=== PATIENT | female | born 1940 | race Caucasian/White ===

== ENCOUNTER 2016-11-24 20:50 | Inpatient (IN) | payer MEDICARE ==
[~2016-11-24] VITALS: Ht 154.9 cm; Wt 42.9 kg
[2016-11-24] MEDS ORDERED: BISCOLAX10 MG/SUPP RC (21:23)
[2016-11-24] MEDS ORDERED: MORPHINE SULFAT15 M4 PO (21:24)
[2016-11-24] MEDS ORDERED: ACIDOPHILUS LAC1 CAP PO (21:25)
[2016-11-24] MEDS ORDERED: ASCORBIC ACID500 MG PO (21:25)
[2016-11-24] MEDS ORDERED: MULTIPLE VITAMI1 TA1 PO (21:26)
[2016-11-24] MEDS ORDERED: ARGININE1 GM PO (21:26)
[2016-11-24] MEDS ORDERED: SENNA PLUS TA1 UDTAB PO (21:27)
[2016-11-24] MEDS ORDERED: ATIVAN0.5 MG PO (21:28)
[2016-11-24] MEDS ORDERED: SEROQUEL50 MG PO (21:28)
[2016-11-24] MEDS ORDERED: MORPHINE SUL20 MG/ML PO (21:38)
[2016-11-24] MEDS ORDERED: LORAZEPAM1 MG/0.5 M SL (21:40)
[2016-11-25 03:56] VITALS: BP 119/71; BMI 18.6
[2016-11-25 06:39] LABS: APPEARANCE TURBID (CLEAR); BILIRUBIN NEGATIVE (NEGATIVE); COLOR YELLOW (YELLOW); GLUCOSE NEGATIVE (NEGATIVE); KETONE NEGATIVE (NEGATIVE); LEUKOCYTE ESTERASE 2+ (NEGATIVE); NITRITE POSITIVE (NEGATIVE); PROTEIN TRACE mg/dL (NEGATIVE); SPECIFIC GRAVITY 1.005 (1.005-1.020); UROBILINOGEN NORMAL (NORMAL)
[2016-11-25 06:40] LABS: BACTERIA MANY /hpf (NONE SEEN); EPITHELIAL CELLS 0-5 /hpf (0-5); RED CELLS - URINE 25-50 /hpf (0-5); WHITE CELLS - URINE >50 /hpf (0-5)
[2016-11-25 07:39] LABS: BASOPHILS 0.5 % (0.0-2.0); EOSINOPHILS 0.7 % (0-7); HEMATOCRIT 34.1 % (36.0-48.0); HEMOGLOBIN 10.9 g/dL (12-16); IMMATURE GRANULOCYTES 0.7 % (0-5); LYMPHOCYTES 19.6 % (15-50); MCH 30.4 pg (26.0-34.0); MONOCYTES 8.8 % (2-11); NEUTROPHILS 69.7 % (40-80); RBC 3.59 10x6/uL (4.00-5.40); RDW 17.3 % (11.5-14.5); WBC 7.4 10x3/uL (4.8-10.8)
[2016-11-25 07:43] LABS: PLATELET COUNT 406 10x3/uL (130-400)
[2016-11-25 07:51] LABS: ALBUMIN 2.8 g/dL (3.4-5.0); ALKALINE PHOSPHATASE 86 U/L (46-116); ALT (SGPT) 22 U/L (10-68); CALC OSMOLALITY 272 mosm/kg (275-300); CALCIUM 8.6 mg/dL (8.5-10.1); CARBON DIOXIDE 27.7 mmol/L (21.0-32.0); CHLORIDE - SERUM 100 mmol/L (98-107); CHOL - HDL RATIO 2.3 ratio (2.3-4.1); CHOLESTEROL, TOTAL 172 mg/dL (0-200); CREATININE - SERUM 0.5 mg/dL (0.6-1.3); GLUCOSE 99 mg/dL (74-106); HDL CHOLESTEROL 75 mg/dL (32-96); LDL CHOLESTEROL 84 mg/dL (0-100); LDL-HDL RATIO 1.1 ratio (1.5-3.5); POTASSIUM - SERUM 3.8 mmol/L (3.5-5.1); PROTEIN - SERUM 6.7 g/dL (6.4-8.2); SODIUM 137 mmol/L (136-145); THYROID STIMULATING HORMONE 5.34 uIU/mL (0.36-3.74); TRIGLYCERIDE 66 mg/dL (30-200); UREA NITROGEN 9 mg/dL (7-18); eGFR NON AFRICAN AMERICAN > 90 mL/min (90-120)
[2016-11-25 08:08] VITALS: BP 131/72
[2016-11-25 09:57] VITALS: Ht 154.9 cm; Wt 42.9 kg
--- NOTE | 2016-11-25 15:45 | NUR ---
(B)RECEIVED PATIENT SITTING IN A CHAIR AT THE NURSES STATION. ORIENTED TO SELF ONLY. CALLING OUT FOR HELP. CRIES OUT BUT NO TEARS AND WHEN APPROACHED SHE STOPS. MOTIONS FOR SOMEONE TO COME TO HER AT ALL TIMES. TRIES TO GET PEERS TO WAIT ON HER. ROGER BAUTISTA SHE IS HERE BECAUSE THEY ARE JEALOUS OF HER BECAUSE SHE HAS TRAVELED THE WORLD OVER AND WAS TO A DOCTOR. SOMATIC C/O. (I)ADMINISTER MEDS AND MONITOR COMPLIANCE. REORIENT NEEDED. (R)MED COMPLIANT. POOR REORIENTATION DUE TO IMPAIRED ABILITY TO RETAIN INFORMATION. CONTINUES TO BE ATTENTION SEEKING AND DEMANDING. (P)CONTINUE POC AND MAINTAIN FALL PRECAUTIONS.
[2016-11-25 20:00] VITALS: BP 119/68
--- NOTE | 2016-11-26 | NUR ---
B) Recieved patient in the day room sitting in a gerardo chair, alert and oriented to self and hospital, attention seeking and intrusive, I) Administered perscribed medications, redirected andoriented as needed, R) Medication compliant, yells for staff to come to her, always needing somthing, P) Continue plan of care.
--- NOTE | 2016-11-26 07:45 | NUR ---
Patient started the day making requests for different things even though she was just told it will be just one moment. Patient is not able to roll herself and she will not stand, she is a total care patient. Patient does have a jordan cath and it is draining cloudy yellow urine. Patient is oriented to her name this am, but she is delusional and did say "I have two cups of goat milk that I must have" Explianed to her that it is not here, she is in the hospital, perhaps it is at the [facility] Patient said "Right, I need it now" Patient is hard of hearing and she is not comprehending that the goat milk is not here. Patient can be a bit eccentric and grandiose, but she is being less intrusive at this time. I) Provide prescribed meds and attempt to redirect. R) Patient is compliant with meds, but she does ask about all of her meds. P) Continue plan of care.
[2016-11-26 08:16] LABS: FOLATE (FOLIC ACID) - SERUM >20.0 ng/mL (>3.0)
[2016-11-26 10:39] VITALS: BP 99/59
--- NOTE | 2016-11-26 12:40 | NUR ---
CONSTANTLY SHIFTING IN RECLINER,WANTS TO LAY DOWN.EXPLAINED TO HER SHE CAN'T LAY DOWN NOW BUT WANT ACCEPT NO AN ANSWER.ATIVAN 0.5MG SL GIVEN FOR ANXIETY.
--- NOTE | 2016-11-26 12:40 | NUR ---
Patient is getting anxious and rambling and doesn't want to listen to redirection. She will say "What I can't hear" Unsure if this is r/t her hearing or her attention seeking behavior. She is demanding and wants to be attended to at the exact moment she asks for it. Ativan 0.5 mg po given SL now, will monitor.
--- NOTE | 2016-11-26 13:10 | NUR ---
RESTING QUIETLY IN RECLINER.GOOD RESPONSE TO ATIVAN.
--- NOTE | 2016-11-26 13:20 | NUR ---
Patient is calmer and less demanding, trying to rest.
--- NOTE | 2016-11-26 14:54 | NUR ---
Patient yelling out "May I please get a pill to sleep" She asked several times and staff redirected her several times that it is day time and we can not have sleeping pills.
--- NOTE | 2016-11-26 14:55 | NUR ---
Patient then began asking for a pain pill, saying "It is has been 3 hours since I've had anything" Then patient began her fake crying and hollering out. She covered her face with a sheet. When no one responded to her fake cry she stopped and then she asked Mirian if she can have medication. Mirian said I will let Iris know. Patient is perfectly calm now.
--- NOTE | 2016-11-26 15:15 | NUR ---
Patient requests pain medication. Morphine 10 mg SL provided now.
--- NOTE | 2016-11-26 15:53 | NUR ---
Visitors present and patient is trying to whine and cry, but no tears are seen, Veronica Blanco asked her "What do you need" She mentioned "High tea" and then she said she thought she may need Senna".
--- NOTE | 2016-11-26 15:55 | NUR ---
Patient is asking to go to the [facility]. Explained that she can go shortly, but patient is very impatient and says "I can't wait forever" Explained that it will be soon" Now she is whining and tearful.
[2016-11-26 19:36] VITALS: BP 105/70
--- NOTE | 2016-11-27 00:28 | NUR ---
B) Recieved sitting in day room in a gerardo chair, alert and oriented to self and hospital, demanding and attention seeking, hyperverbal at times I) Administered perscribed medications, redirected and oriented as needed, R) Medication compliant, works into every conversation that she is from [place] way, P) Continue plan of care, continue to monitor.
[2016-11-27 09:59] VITALS: BP 111/62
--- NOTE | 2016-11-27 14:32 | NUR ---
(B)RECEIVED PATIENT SITTING IN A CHAIR AT THE NURSES STATION. ORIENTED TO SELF, HOSPITAL, TOWN, DAY AND MONTH. ATTENTION SEEKING AND CALLS FOR HELP FREQUENTLY AND MAKES CRYING NOISE UNTIL SOMEONE COMES TO HER SIDE. DIFFICULT TO PLEASE WHEN SOMETHING IS DONE FOR HER. RELATES SHE HAS NOT BEEN TO A DOCTOR IN 10 YEARS. "I WAS TO A DOCTOR FOR ABOUT 6 YEARS AND I LEARNED ALOT FROM HIM." NOT EATING WELL BUT FREQUENTLY WANTS SOMETHING TO DRINK. DRESSING CHANGED TO COCCYX. (I)ADMINISTER MEDS AND MONITOR COMPLIANCE. REDIRECT FOR ATTENTION SEEKING BEHAVIORS. (R)MED COMPLIANT. POOR REDIRECTION. ATTEMPTS TO STAFF SPLIT BY ASKING DIFFERENT STAFF FOR SOMETHING WHEN SHE HAS ALREADY RECEIVED A RESPONSE FROM A STAFF MEMBER AEB PATIENT WANTED TELEVISION TURNED OFF AND WAS TOLD OTHER PEOPLE ARE WATCHING IT. PATIENT THEN ASKED ANOTHER STAFF MEMBER IF THEY WOULD TURN THE TV OFF AND STAFF GAVE THE SAME RESPONSE THAT PEOPLE WERE WATCHING IT. (P)CONTINUE POC AND MAINTAIN FALL PRECUATIONS.
[2016-11-27 20:00] VITALS: BP 134/67
--- NOTE | 2016-11-28 00:22 | NUR ---
B) Recieved sitting in a gerardo chair in the day room, alert and oriented to self and being in a hospital, demanding and attention seeking, I) Administered perscribed medications, redirected as needed, R) Medication compliant, resting quietly now. P) Continue plan of care, continue to monitor.
[2016-11-28 10:27] VITALS: BP 128/70
--- NOTE | 2016-11-28 13:51 | PSY ---
PATIENT NAME:JEAN-CLAUDE SEALS MEDICAL RECORD: [id number] : 36 LOCATION:[facility] ADMISSION DATE: 11/24/16 ACCOUNT: [id number] PSYCHIATRIC EVALUATION DATE OF EVALUATION: 11/25/16 Psychiatric Evaluation IDENTIFYING DATA: The patient is 76 years old and she is admitted to the hospital on a voluntary basis from a local long term. CHIEF COMPLAINT: Confusion. HISTORY OF PRESENT ILLNESS: The patient has congestive heart failure and it is severe. She is on hospice and lives in a long term for this. She has been combative with her caregivers, yelling and cursing at people, throwing things and trying to be aggressive. She denies this. She denies that she is depressed as well. She endorses numerous depressive symptoms. She does report a great deal of anxiety. PAST MEDICAL HISTORY: Significant for osteoarthritis, osteoporosis, hypothyroidism and coronary artery disease. PAST PSYCHIATRIC HISTORY: Significant for anxiety and depression for which the patient is being treated as an outpatient. ALLERGIES: No known drug allergies. CURRENT MEDICATIONS: Include Bystolic, morphine sulfate, arginine, Ativan and Seroquel. FAMILY HISTORY: Negative for psychiatric disease by her report. SOCIAL HISTORY: The patient is a nonsmoker, nondrinker. She has 1 adult daughter. She is originally from [place]. She is currently . MENTAL STATUS EXAMINATION: The patient is awake, alert and oriented to person, place and somewhat to situation. Her mood is flat. Her affect is constricted. Thought processes are circumstantial. Memory, concentration and abstraction abilities are moderately impaired and she denies any active intent to harm herself or others as well as any overt psychotic symptoms. ASSETS: Supportive family members. LIABILITIES: Limited insight. DIAGNOSTIC IMPRESSION: AXIS I: 1. Delirium, type uncertain, probably secondary to multiple medications. 2. Major depression, moderate severity. AXIS II: Cluster A personality traits. AXIS III: Urinary tract infection, recent myocardial infarction, hypothyroidism, atrial fibrillation, anemia, chronic obstructive pulmonary disease, congestive heart failure. AXIS IV: Moderate stressors. AXIS V: Global Assessment of Functioning is 30. PLAN: At this time, the patient is admitted to the hospital secondary to paranoid and confusing thoughts that are representing an acute risk to herself or others. She will be tested for evidence of a thinking disorder. She will be treated with mood stabilizing and memory enhancing medications. Her long-term prognosis is guarded. TRANSINT:[id number] Voice Confirmation ID: [id number] DOCUMENT ID: [id number] WIN LO MD at 1359 CC: [id number] DICTATION DATE: 11/25/16 1436 DIRECTOR CONSUMER AFFAIRS: 11/25/16 1452 ADM IN [facility] [address] [place] [address]
--- NOTE | 2016-11-28 14:02 | NUR ---
WOUND CARE CONSULT: NOTED STAGE 2 PRESSURE INJURY TO SACRUM. MEASURES 2CM X 1CM X 0.3CM. WOUND BED IS PINK/YELLOW. SMALL TO NO DRAINAGE. RECOMMEND COVERING WITH MEPILEX SACRAL DRESSING. CHANGE Q3 DAYS AND NEEDED IF SOILED OR LOOSENED.
--- NOTE | 2016-11-28 16:56 | NUR ---
RECEIVED THIS AM SITTING IN RECLINER.IS ORIENTED X 3.CALM AND COOPERATIVE WITH STAFF,COMPLIANT WITH MEDS BUT IS ALSO ATTENTION SEEKING.IS TOTAL LIFT FROM RECLINER TO COMMODE OR BED.DOES NOT HOLD SELF UP OR FLOW FLOOR ATTENDANT FEET DURING TRANSFERS.WILL CONTINUE WITH PLAN OF CARE,MONITOR FOR CHANGES AND SAFETY.
--- NOTE | 2016-11-28 17:48 | NUR ---
Patient very cooperative throughut the day, she is alittle demanding at times but does not yell out or throw things, no aggression or combativeness assessed.
[2016-11-28 19:39] VITALS: BP 124/71
--- NOTE | 2016-11-28 20:55 | NUR ---
RECEIVED IN DAYROOM. SETTING IN RECLINER. FOELY INTACT. CALM AND COOPERATIVE WITH CARE AND ASSESSMENT. NO SIGNS OF AGGRESSION. NO YELLING OUT. NEEDY AT TIMES. REDIRECT AND REORIENT NEEDED. PM MEDS GIVEN ORDERED. RESTING IN ROOM AT THIS TIME. CONTINUE PLAN OF CARE
--- NOTE | 2016-11-29 10:40 | NUR ---
Nutrition Follow Up: Chart reviewed. Per Wound Care note pt with stage II ulcer to sacrum. Per MD note pt with chronic malnutrition. Diet: Mechanical Soft Vegetarian PO Intake: 28% (8 meal avg) Wt loss 1# since admit; pt has gained wt since acute admit in October +BM 11/28/16 No new labs Meds: Megace, Vit C, MV Pt continues with poor po intake. Pt is not meeting est nutritional needs. Rec continue current diet and appetite stimulant. Will send Ensure with meals. RD following.
--- NOTE | 2016-11-29 11:00 | NUR ---
B.) Alert and oriented times three, calm and cooperative with am assessment. I.)Administer medications and monitor compliance, redirect for any attention seeking or inappropriate behavior. Monitor safety. R.) Compliant with medications, patient is attention seeking, will aske for something and if you do not get it right away she will cry until someone comes, and demands attention right away. Redirect patient that she does not have to cry to get things, we are here to help her. Did start to wait patiently at times for things. P.) Continue plan of care.
[2016-11-29 14:08] VITALS: BP 122/53
[2016-11-29 20:35] VITALS: BP 116/74
--- NOTE | 2016-11-29 23:04 | NUR ---
RECEIVED IN DAYROOM. SETTING IN WHEELCHAIR. CALM AND COOPERATIUVE WITH CARE AND ASSESSMENT. ATTENTION SEEKING. REDIRECT AND REORIENT NEEDED. PM MEDS GIVEN ORDERED. RESTING IN BED EYES CLOSED AT THIS TIME. CONTINUE PLAN OF CARE
[2016-11-30 08:00] VITALS: BP 106/52
--- NOTE | 2016-11-30 12:09 | PN ---
PATIENT:JEAN-CLAUDE SEALS MEDICAL RECORD: [id number] LOCATION:[facility] ADMISSION DATE: 11/24/16 PROGRESS NOTE DATE OF SERVICE: 11/29/2016 SUBJECTIVE: The patient's case was discussed with staff. She has no new complaint. OBJECTIVE: The patient denies intent to harm herself or others. She generally tolerates her medicines well. ASSESSMENT: No change in diagnoses. PLAN: The patient was tested by Dr. Lin Pina. She scored a 21/30 on the Wythe scale. This indicates she is in the moderate range of impairment. I am not particularly surprised by the finding. However, it is clear that in casual conversations, she comes across more intact than she actually is. She is a hospice patient and the testing reaffirms or confirms that she does indeed have a dementing process in addition to her congestive heart failure and that she most certainly does need 59-obip-t-day supervision. TRANSINT:[id number] Voice Confirmation ID: [id number] DOCUMENT ID: [id number] WIN LO MD at 1209 CC: [id number] DICTATION DATE: 11/29/16 1448 SPINNER HYDRAULIC: 11/29/16 1504 ADM IN [place] [facility] [id number] [place] [address]
--- NOTE | 2016-11-30 12:10 | PN ---
PATIENT:JEAN-CLAUDE SEALS MEDICAL RECORD: [id number] LOCATION:[facility] ADMISSION DATE: 11/24/16 PROGRESS NOTE DATE OF SERVICE: 11/28/2016 SUBJECTIVE: The patient's case was discussed with staff. She has no new complaint. OBJECTIVE: The patient denies intent to harm herself or others. She has been fairly attention seeking, but not in a way that would represent a danger. Unfortunately, she is not eating. She insists she is not hungry, but says she will try to do better. She is on hospice at the residential and this patient only weighs 98 pounds. She is only 5 feet 1 inch tall, but still she only weighs 98 pounds. I am going to put her on Megace to help with appetite stimulation and I must say her long-term prognosis is poor. TRANSINT:[id number] Voice Confirmation ID: [id number] DOCUMENT ID: [id number] WIN LO MD at 1210 CC: [id number] DICTATION DATE: 11/28/16 1421 PRACTICE BUSINESS ASST: 11/28/16 1503 ADM IN [facility] [address] [place] [address]
--- NOTE | 2016-11-30 12:30 | NUR ---
B) Patient is awake and alert and she is quite demanding, abdomen is firm and hard, asked her about having a BM and right away she became fixated on having a BM immediately. Patient did have a BM and she wanted to get up as soon as she sat down. Patient ambulated one step with PT, she has sat and stood two more times today. I) Provide prescribed meds and redirect to appropriate behavior. R) Patient is compliant with meds, she needs to be redirected and multiple prompts on what is appropriate. P) Continue plan of care.
[2016-11-30 20:22] VITALS: BP 141/70
--- NOTE | 2016-11-30 22:00 | NUR ---
RECEIVED AT NURSES DESK SITTING IN RECLINER. CALM AND COOPERATIVE WITH CARE. NO AGGRESSION NOTED. COMPLIANT WITH TAKING PM MEDS. ASSESSMENT COMPLETED PER FLOW SHEET. WILL CONTINUE WITH POC AND MONITOR FOR SAFETY.
[2016-12-01 08:10] VITALS: BP 151/75
--- NOTE | 2016-12-01 12:51 | NUR ---
B) Patient is demanding and attention seeking, she is asking for multiple things and she sees the staff busy and will still ask. She has been redirected. Patient can stand with assist to transfer, but she is not ambulating yet. I) Provide prescribed meds. R) Patient is compliant with meds. Patient continues to make requests multiple times. P) Continue plan of care.
--- NOTE | 2016-12-01 14:02 | PN ---
PATIENT:JEAN-CLAUDE SEALS MEDICAL RECORD: [id number] LOCATION:[facility] ADMISSION DATE: 11/24/16 PROGRESS NOTE DATE OF SERVICE: 11/30/2016 SUBJECTIVE: The patient's case was discussed with staff. She has no new complaint. OBJECTIVE: The patient is in good behavioral control with limited insight about her condition. She is tolerating her medications reasonably well. She was tested by Dr. Courtney Pina and clearly has a dementia. DIAGNOSIS: Senile dementia of the Alzheimer's type. PLAN: The patient is in need of longterm placement 24-hour a day care and hospice. She has terminal and end-stage congestive heart failure along with an end-stage dementia. Her prognosis is exceedingly poor and comfort care measures are appropriate. TRANSINT:[id number] Voice Confirmation ID: [id number] DOCUMENT ID: [id number] WIN LO MD at 1402 CC: [id number] DICTATION DATE: 11/30/16 1545 BOBBIN MARKER: 11/30/162019 ADM IN [place] [id number] [place] [address]
[2016-12-01 19:30] VITALS: BP 108/71
--- NOTE | 2016-12-02 00:12 | NUR ---
B) Recieved prosper in a gerardo chair in the day room, alert and oriented to self and being in a hospital, talkitive and friendly, I) Administered perscribed medications crushed in apple sauce, R) Medication compliant, mild attention seeking, P) Continue plan of care, continue to monitor.
[2016-12-02 08:11] VITALS: BP 126/67
--- NOTE | 2016-12-02 13:54 | NUR ---
B) Patient is awake and alert, she does make demands, but she has been less demanding today. She does have a jordan catheter in place draining yellow, cloudy urine. Patient did ambulate today with her shoes on and she used a walker and gait belt with P.T. and staff. I) Provide prescribed meds, redirect as needed to appropriate milieu. R) Patient is able to confabulate when questions are asked of her. She is compliant with meds and unit milieu. P) Continue plan of care.
--- NOTE | 2016-12-02 14:26 | NUR ---
LATE ENTRY FROM 12/01. PT'S FRIEND, CEE, VISITED THE UNIT. SW WENT OVER DX AND DISEASE PROGRESSION. SW ALSO DISCUSSED THE NEED FOR 24/ SUPERVISION. SW DISCUSSED MEDICATION MANGEMENT AND DISCHARGE PLANNING.
[2016-12-02 16:15] LABS: AEROBE ID Final report (()); RESULT 1 Escherichia coli (())
[2016-12-02 19:30] VITALS: BP 112/67
--- NOTE | 2016-12-02 20:58 | NUR ---
B) Patient in bed and she is happy to go to bed, she sat at sink and cleaned her teeth. She is confused, but she is able to confabulate and pretend she is not able to hear to give herself an extra minute to think. She has not been yelling out to staff tonight. Patient can stand and transfer now with assist, although at times she will protest. I) Provide prescribed meds and redirect as needed. R) Patient is compliant with meds. P) COntinue plan of care.
[2016-12-03 09:46] VITALS: BP 166/59
--- NOTE | 2016-12-03 16:15 | NUR ---
RECEIVED THIS AM SITTING IN RECLINER.COMPLIANT WITH MEDS.CAN BE VERY DEMANDING,INTERRUPTING NURSE WHILE ATTENDING TO OTHER PATIENTS.TAKES MEDS WITH APPLESAUCE.NERI TO GRAVITY WITH CLOUDY YELLOW URINE.WILL CONTINUE WITH PLAN OF CARE,MONITOR FOR CHANGES AND SAFETY.
--- NOTE | 2016-12-03 18:39 | PN ---
PATIENT:JEAN-CLAUDE SEALS MEDICAL RECORD: [id number] LOCATION:[facility] ADMISSION DATE: 11/24/16 PROGRESS NOTE DATE OF SERVICE: 12/02/2016 SUBJECTIVE: No new complaint. OBJECTIVE: The patient has been doing reasonably well, confusion is clearing to some degree. Discharge plans are pending, return of hawk approval. On exam, mood is for the most part euthymic. Affect is rather constricted. Speech is somewhat rambling. Content of thought is negative for overt psychosis. Sensorium shows no change. ASSESSMENT: No change in diagnosis. PLAN: 1. Maintain current medication. 2. Continue supportive therapy. TRANSINT:[id number] Voice Confirmation ID: [id number] DOCUMENT ID: [id number] PARVIN YATES III, MD at 1839 CC: [id number] DICTATION DATE: 12/02/16 1225 DEAN OF INSTRUCTION: 12/02/16 2103 ADM IN [place] [id number] [place] [address]
[2016-12-03 20:00] VITALS: BP 112/59
--- NOTE | 2016-12-03 21:45 | NUR ---
B) Day shift reported that patient has been up to bathroom frequently for small BMs. on unit, discontinued Dulcolax and Senokot. Patient was started on Miralax tonight. Difficult to hold conversation with, due to her being very [place]. Pleasant, does complain of chronic back pain, received routine dose of analgesic at HS which she states helped so much. Refused offer of a shower with staff assistance. Piña catheter in place draining well. No sgns of altered thought process this shift thus far. Duoderm is intact over sacral ulcer. I) Administer medications as ordered, redirect and reorient PRN. R) Compliant with medications given crushed in applesauce. Alert and oriented x 3 (person, place and time) but not to situation. No yelling out, no aggression. P) Continue with plan of care.
[2016-12-04 07:41] VITALS: BP 122/61
--- NOTE | 2016-12-04 13:55 | NUR ---
ORIENTED TO PERSON AND PLACE. PT REQUIRES FREQUENT REDIRECTION WITH NO EVIDENCE OF RETAINING. PT C/O ANXIETY. ENCOURAGED PT TO EXPRESS FEELINGS TO STAFF TO HELP WITH COPING SKILLS FOR HER ANXIETY. MED COMPLIANT. NERI IS PATENT. PT CONTINUES TO REQUEST TO GO TO THE BATHROOM MULTIPLE TIMES THROUGHOUT THE DAY BUT NO EVIDENCE OF A BM YET. EDUCATED PT ON URGE AND PASSING GAS. NO EVIDENCE OF UNDERSTANDING. FALL PRECAUTIONS MAINTAINED. NO AGGRESSION OR DEPRESSION NOTED. WILL CONTINUE TO MONITOR AND CONTINUE WITH PLAN OF CARE.
--- NOTE | 2016-12-04 23:00 | NUR ---
B) Less anxious and needy than patient was earlier today. Focused on getting her pain medication, explained to patient she did receive her MS Contin with her HS medications. Was somewhat impatient waiting to go back to her room this evening. I) Administer medications as ordered, redirect and reorient PRN, educate on pain management. R) No behavior problem, no acting out, compliant with medications. P) Continue monitoring per plan of care.
--- NOTE | 2016-12-04 23:20 | NUR ---
Crying out in her room, tearful, states she cannot stand the aching pain in her knees. Given Morpine Sulphate solution as ordered PRN. Will monitor for effectiveness.
[2016-12-05 07:38] VITALS: BP 98/59
--- NOTE | 2016-12-05 13:16 | PN ---
PATIENT:JEAN-CLAUDE SEALS MEDICAL RECORD: [id number] LOCATION:[facility] ADMISSION DATE: 11/24/16 PROGRESS NOTE DATE OF SERVICE: 12/01/2016 SUBJECTIVE: The patient's case was discussed with staff. She has no new complaint. OBJECTIVE: The patient is depressed, but not suicidal. She has very limited insight about her condition. ASSESSMENT: No change in diagnoses. PLAN: The patient is not showing evidence of acute dangerousness. I anticipate that she can reasonably be transitioned out of the hospital soon if this level of improvement is maintained. TRANSINT:[id number] Voice Confirmation ID: [id number] DOCUMENT ID: [id number] WIN LO MD at 1316 CC: [id number] DICTATION DATE: 12/01/16 1444 RN INFORMATICS: 12/01/16 1800 ADM IN [facility] [address] [place] [id number]
[2016-12-05] MEDS ORDERED: MEGACE40 MG PO (13:27)
[2016-12-05] MEDS ORDERED: KLONOPIN0.5 MG PO (13:29)
[2016-12-05] MEDS ORDERED: ZOLOFT50 MG PO (13:30)
[2016-12-05] MEDS ORDERED: MIRALAX17 GM PO (13:30)
[2016-12-05] MEDS ORDERED: MORPHINE SUL20 MG/ML PO (13:30)
[2016-12-05] MEDS ORDERED: MS CONTIN15 MG PO (13:30)
[2016-12-05] MEDS ORDERED: SYNTHROID25 MCG PO (13:31)
--- NOTE | 2016-12-05 15:52 | NUR ---
B.) Alert and oriented to name and place, calm and cooperative with care. I.) Administer medications and monitor compliance, redirect and reorient as need. encourage group participation. R.) Compliant with medications, no aggression or yelling out, still a little demanding at times but will patiently wait until nurse comes. Pleasant and cooperative. P.) Continue with plan of care.
--- NOTE | 2016-12-05 18:55 | NUR ---
DRESSING CHANGE 12/05/16 TO SACRAL AREA 2CM X 1CM X 0.3 CM NO DRAINAGE, PINK. DRESSING CHANGE ON SACRAL ULCER, WOUND IS 2 CM X 1 CM X 0.3 CM. STAGE 2 PRESSURE ULCER, NO DRAINAGE. WOUND CLEANSED AND SACRAL DRESSING APPLIED.
[2016-12-05 19:58] VITALS: BP 125/57
--- NOTE | 2016-12-05 20:29 | NUR ---
RECEIVED IN DAYROOM. LAYING IN RECLINER WITH EYES OPEN. NOT SOCIALIZING. CALM AND COOPERATIVE WITH CARE AND ASSESSMENT. NO SIGNS OF AGGRESSION. NO YELLING OUT. NERI INTACT. REDIRECT AND REORIENT NEEDED. CONTINUES TO REST QUIETLY IN RECLINER. CONTINUE PLAN OF CARE
[2016-12-06 10:07] VITALS: BP 160/59
--- NOTE | 2016-12-06 10:07 | NUR ---
Nutrition Follow Up: Chart reviewed. Pt continues with very poor po intake - eating 23% meal avg on a Mechanical Soft diet. Pt is receiving Ensure with meals. Meds noted including MV, Vit C and Megace. Noted pt with stage II ulcer. Wt loss of 4# since admit. +BM 12/03/16. Rec continue current diet and supplement regimen. Rec continue appetite stimulant. RD following.
--- NOTE | 2016-12-06 12:40 | NUR ---
SPOKE WITH CHANEL REGARDING UPDATE ON PATIENT'S CONDITION. NURSE INFORMED FRIEND SHE IS DISCHARGING TODAY. QUESTIONS ANSWERED. WANTED PATIENT TOLD SHE CALLED AND WILL SEE HER TOMORROW AFTER SHE HAS TIME TO GET SETTLED IN. MESSAGE RELAYED TO PATIENT.
--- NOTE | 2016-12-06 12:43 | NUR ---
(B)RECEIVED PATIENT SITTING IN A CHAIR AT THE NURSE'S STATION. ORIENTED TO SELF ONLY. C/O PAIN TO (R) FOOT 06/15. PATIENT'S RIGHT FOOT HAD 2+ EDEDMA AND THE TOENAIL TO THE (R)GREAT TOE IS COMING OFF AND WOULD RAISE COMPLETELY UP OFF THE TOE. PATIENT IS PLANNED TO BE DISCHARGING TODAY AND INSTRUCTED HER SHE NEEDS TO SEE THE DOCTOR AT [facility] AND HAS THE NAIL TAKEN OFF. VERY SOCIAL WITH STAFF HOWEVER DOES NOT INTERACT WITH PEERS. PREOCCUPIED WITH HAVING TO GO TO THE BATHROOM. HOLDS HAND IN AIR A CHILD IN A CLASSROOM. EPISODES OF CRYING WHEN DOES NOT GET HER WAY. (I)ADMINISTER MEDS AND MONITOR COMPLIANCE. DISCUSS PLAN FOR DISCHARGE. (R)MED COMPLIANT. SPOKE WITH PATIENT REAGARDING DISCHARGE AND INFORMED HER SHE IS GOING TO [facility] AND SHE MUST PARTICIPATE WITH PHYSICAL THERAPY SHE DOES HERE IF SHE WANTS TO GET STRONGER AND BE ABLE TO WALK. VERBALIZED UNDERSTANDING. (P)CONTINUE POC AND MAINTAIN FALL PRECAUTIONS.
--- NOTE | 2016-12-06 12:50 | NUR ---
DISCHARGED PATIENT TO [facility] WITH [place] STAFF VIA FACILITY VEHICLE. PERSONAL BELONGINGS SENT WITH PATIENT AND FACILITY STAFF. PAPERWORK SENT WITH STAFF MEMBER TO FACILITY. CONDITION STABLE AT TIME OF DISCHARGE.
--- NOTE | 2016-12-07 17:36 | PN ---
PATIENT:JEAN-CLAUDE SEALS MEDICAL RECORD: [id number] LOCATION:[facility] ADMISSION DATE: 11/24/16 PROGRESS NOTE DATE OF SERVICE: 12/06/2016 SUBJECTIVE: The patient's case was discussed with staff. She has no new complaint. OBJECTIVE: The patient slept better last night. She has not been aggressive. She has limited insight about her condition. ASSESSMENT: No change in diagnoses. PLAN: Current medicines and therapies have been reviewed and will be maintained. Long-term prognosis is guarded. I anticipate she can be transitioned out of the hospital soon if this level of improvement is maintained. TRANSINT:[id number] Voice Confirmation ID: [id number] DOCUMENT ID: [id number] WIN LO MD at 1736 CC: [id number] DICTATION DATE: 12/06/16 1323 RESIDENTIAL LAWN SPECIALIST: 12/06/16 1838 DIS IN 12/06/16 [facility] [address] [place] [address]
--- NOTE | 2016-12-07 17:36 | PN ---
PATIENT:JEAN-CLAUDE SEALS MEDICAL RECORD: [id number] LOCATION:[facility] ADMISSION DATE: 11/24/16 PROGRESS NOTE DATE OF SERVICE: 12/05/2016 SUBJECTIVE: The patient's case was discussed with staff. She has no new complaint. OBJECTIVE: The patient is quite confused and impaired, but not openly aggressive or delusional. Her level of functioning is inconsistent with what I see behaviorally objectively. Her testing indicates that she is more impaired than she looks. I do think she is improved sufficiently such that she could be transitioned back to the care home and I do not believe she represents an acute danger to herself or others. She is a hospice patient there because of the congestive heart failure and obviously that indicates her long-term prognosis is exceedingly poor. TRANSINT:[id number] Voice Confirmation ID: [id number] DOCUMENT ID: [id number] WIN LO MD at 1736 CC: [id number] DICTATION DATE: 12/05/16 1327 MERCHANDISING EXECUTION MANAGER: 12/05/16 1603 DIS IN 12/06/16 [facility] [address] [place] [address]
--- NOTE | 2016-12-14 12:46 | DS ---
PATIENT:JEAN-CLAUDE SEALS :36 MEDICAL RECORD: [id number] DISCHARGE SUMMARY ADMISSION DATE: 11/24/16 DISCHARGE DATE: 12/06/16 IDENTIFYING DATA: The patient is 76-year-old and she is admitted to the hospital on a voluntary basis secondary to confusion. The patient has congestive heart failure and has been in hospice and living in a [facility]. She has been combative with her caregivers, and yelling and cursing at people. She has also been throwing things at others and trying to hit them. She denies that she is depressed. She, however, endorses a lot of depressive symptoms. She does report a great deal of anxiety. HOSPITAL COURSE: The patient was admitted to the hospital and fully evaluated from both medical, psychological, and social standpoint. She was treated with both antidepressant and mood-stabilizing medications and did show significant improvement. She was felt to be slightly delirious secondary to multiple medications that she was taking and there was a review and streamlining of some of her medications. She was subsequently transitioned out of the hospital and back to hospice. DISCHARGE DIAGNOSES: AXIS I: Delirium secondary to multiple medications, resolved. Major depression, moderate severity AXIS II: Cluster A personality traits. AXIS III: Urinary tract infection, recent myocardial infarction, hypothyroidism, atrial fibrillation, anemia, chronic obstructive pulmonary disease, congestive heart failure. AXIS IV: Moderate stressors. AXIS V: Global assessment of functioning is 35. PLAN: At the time of discharge, the patient was not acutely dangerous to herself or others. She was tolerating her medications well. From a behavioral standpoint, her prognosis is fair. From a medical standpoint, her prognosis is poor and she is in hospice secondary to congestive heart failure. TRANSINT:[id number] Voice Confirmation ID: [id number] DOCUMENT ID: [id number] WIN LO MD at 1246 CC: [id number] DICTATION DATE: 12/13/16 1502 WASHERY ENGINEER: 12/13/16 1532 DIS IN 12/06/[address] [id number]
== END 2016-12-06 12:50 | DRG 880 ==
LOC: D.PSYCH 20:50
PROVIDERS: ADMIT Psychiatry & Neurology Psychiatry
DX: F05 Delirium due to known physiological condition (principal); N39.0 Urinary tract infection, site not specified; F32.1 Major depressive disorder, single episode, moderate; J44.0 Chronic obstructive pulmonary disease with (acute) lower respiratory infection; J44.1 Chronic obstructive pulmonary disease with (acute) exacerbation; E46 Unspecified protein-calorie malnutrition; F41.9 Anxiety disorder, unspecified; I25.2 Old myocardial infarction; I48.91 Unspecified atrial fibrillation; E03.9 Hypothyroidism, unspecified; D64.9 Anemia, unspecified; J20.9 Acute bronchitis, unspecified; I50.9 Heart failure, unspecified; Z74.09 Other reduced mobility; H91.90 Unspecified hearing loss, unspecified ear